=== PATIENT | male | born 1980 | race African-American/Black ===

== ENCOUNTER 2017-09-22 17:56 | Emergency (ER) | payer MEDICARE, OTHER ==
[~2017-09-22] VITALS: Ht 177.8 cm; Wt 72.7 kg
[2017-09-22 20:41] VITALS: BP 118/77
== END 2017-09-22 20:41 | disposition home or self-care (01) ==
LOC: EMS 17:56
DX: F20.0 Paranoid schizophrenia (principal); F17.210 Nicotine dependence, cigarettes, uncomplicated; R11.0 Nausea; F12.90 Cannabis use, unspecified, uncomplicated; F41.9 Anxiety disorder, unspecified
CPT/HCPCS: 99283; 99284; 99406